=== PATIENT | born 1945 ===

== ENCOUNTER 2021-05-20 13:42 | Outpatient (REF) | payer OTHER, SELFPAY ==
[2021-05-20 13:56] LABS: MANUAL DIFF FLAG NO
[2021-05-20 14:05] LABS: Basophils Percent Auto 0.4 % (0-2); Eosinophils Absolute Auto 0.3 X10*3/uL (0.0-0.4); Eosinophils Percent Auto 3.5 % (0-4); Hematocrit 41.2 %; Hemoglobin 14.1 g/dl; Imm Gran Abs Auto 0.02 X10*3/uL (0.00-0.03); Imm Gran Pct Auto 0.2 % (0.0-0.4); Lymphocytes Absolute Auto 2.7 X10*3/uL (1.2-4.9); Lymphocytes Percent Auto 33.7 % (20-40); Mean Corpuscular HGB Conc 34.2 g/dl; Mean Corpuscular Hemoglobin 30.1 pg (27.0-33.0); Mean Corpuscular Volume 87.8 fL (80-98); Mean Platelet Volume 9.7 fL (9.4-12.4); Monocytes Absolute Auto 0.8 X10*3/uL (0.1-1.2); Monocytes Percent Auto 10.1 % (2-11); Neutrophils Absolute Auto 4.2 X10*3/uL (2.0-8.3); Neutrophils Percent Auto 52.1 % (45-73); Platelet Count 207 X10*3/uL (160-400); Red Blood Count 4.69 X10*6/uL; Red Cell Distribution Width 14.1 % (11.0-16.0)
[2021-05-20 14:34] LABS: Alanine Aminotransferase 19 U/L; Albumin Level 3.9 g/dL; Alkaline Phosphatase 62 U/L; Anion Gap 11; Aspartate Amino Transferase 23 U/L; Bilirubin Total 0.5 mg/dL; Blood Urea Nitrogen 31 mg/dL; Calcium 9.3 mg/dL; Carbon Dioxide 32 mmol/L; Chloride 101 mmol/L; Cholesterol 229 mg/dL; Estimated Glomerular Filt Rate > 60; Glucose Random 92 mg/dL; HDL Cholesterol 51 mg/dL; LDL Cholesterol Calculated 156 mg/dl; Potassium 3.2 mmol/L; Sodium 141 mmol/L; Total Protein 6.2 g/dL; Triglycerides 110 mg/dL
[2021-05-20 14:53] LABS: Prostate Specific Antigen 3.51 ng/mL
== END 2021-05-20 13:43 | disposition home or self-care (01) ==
LOC: HO.LNP 13:42
PROVIDERS: Visit Provider Internal Medicine
DX: I10 Essential (primary) hypertension (principal); D36.9 Benign neoplasm, unspecified site; E78.00 Pure hypercholesterolemia, unspecified; N40.0 Benign prostatic hyperplasia without lower urinary tract symptoms; Z12.5 Encounter for screening for malignant neoplasm of prostate
CPT/HCPCS: 80053; 80061; 84153; 85025